=== PATIENT | male | born 1935 | race Caucasian/White ===

== ENCOUNTER 2018-06-29 12:59 | Emergency (ER) | payer OTHER, MEDICARE ==
--- NOTE | 2018-06-29 18:17 | EDM.PDOC ---
ED HPI GENERAL MEDICAL PROBLEM - General Chief Complaint: Syncope Stated Complaint: CHEST VIBRATIONS Time Seen by Provider: 06/29/18 13:00 Source of Information: Reports: Patient, EMS Notes Reviewed, Police History Limitations: Reports: No Limitations, Other (Forgetful, does not know place, time, year, president, season, but does know date) - History of Present Illness INITIAL COMMENTS - FREE TEXT/NARRATIVE: This is an 82yo M brought in by the [employer] department for concerns of syncope. He almost fell multiple times at the department while standing. It was said [place] [employer] [place] he was going or where he was. He was brought to the [employer] [facility] [facility] department at that time and started having syncopal symptoms and was given food and drink. He was then brought to the ER for evaluation. It was discovered during this time that he went missing for 2-3 days from [facility] after his went to the hospital. He has been having similar issues with memory and other concerns but possibly in denial. He cannot recall anything from his car to location, to what he is doing. He does seem pleasant and cooperative. Duration: Constant Associated Symptoms: Reports: Syncope - Related Data Allergies Allergy/AdvReac Type Severity Reaction Status Date / Time No Known Allergies Allergy Verified 06/29/18 14:05 Past Medical History Cardiovascular History: Reports: Bypass, CAD, Pacemaker, Other (See Below) Other Cardiovascular History: Patient is unsure of his medical history. Son states he has a significant cardiac history. 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 Also has pacer noted and felt in left upper chest. Monitor shows paced rhythm Neurological History: Reports: Other (See Below) Other Neuro History: Hx of dementia. Patient went missing from his home about 2 days ago. Family believes he was trying to drive to see his hospitalized in [facility] but got lost. Ended up at the [facility] in [place], [place]. There was a missing persons alert out for him. Psychiatric History: Reports: Addiction, Dementia, Other (See Below) Other Psychiatric History: Hx of alcohol abuse but quit many years ago Endocrine/Metabolic History: Reports: Other (See Below) Other Endocrine/Metabolic History: unsure if hx of diabetes per son - Past Surgical History Cardiovascular Surgical History: Reports: Coronary Artery Bypass ED ROS GENERAL - Review of Systems Review Of Systems: ROS reveals no pertinent complaints other than HPI. - Physical Exam Exam: See Below Exam Limited By: No Limitations General Appearance: Alert, WD/WN, No Apparent Distress Eye Exam: Bilateral Eye: EOMI, PERRL Ears: Normal External Exam Nose: Normal Inspection Throat/Mouth: Normal Inspection, Normal Oropharynx Head Exam: Atraumatic, Normocephalic Neck: Normal Inspection, Supple, Non-Tender Respiratory/Chest: No Respiratory Distress, Lungs Clear, Normal Breath Sounds, No Accessory Muscle Use Cardiovascular: Normal Peripheral Pulses, Regular Rate, Rhythm, No Edema GI/Abdominal: Normal Bowel Sounds, Soft, Non-Tender Neuro Exam (Abbreviated): Alert, Normal Cognition, Normal Gait, Normal Reflexes , No Motor/Sensory Deficits, Memory Loss Remote Events, Memory Loss Recent Events, Other (There is very high concern that this patient has moderate to severe dementia. He cannot recall place, time, season, nor can he recall short term memory or recent longer term memory. When his son arrived he did appear to recognize him. ). No: Oriented Course - Vital Signs Last Recorded V/S: Last Vital Signs Temp 37.1 C 06/29/18 15:30 Pulse 64 06/29/18 15:30 Resp 18 06/29/18 15:30 BP 130/46 L 06/29/18 15:30 Pulse Ox 99 06/29/18 15:30 - Orders/Labs/Meds Orders: Active Orders 24 hr Category Date Time Status Cardiac Monitoring [RC] .As Directed Care 06/29/18 14:10 Active EKG Documentation Completion [RC] ASDIRECTED Care 06/29/18 13:08 Active Chest 1V Frontal [CR] Stat Exams 06/29/18 13:08 Taken Head wo Cont [CT] Stat Exams 06/29/18 14:14 Taken Labs: Laboratory Tests 06/29/18 06/29/18 06/29/18 Range/Units 13:35 13:35 13:35 WBC 6.4 (4.0-11.0) K/uL RBC 4.79 (4.50-6.50) M/uL Hgb 13.3 (13.0-18.0) g/dL Hct 42.4 (40.0-54.0) % MCV 89 (76-96) fL MCH 27.8 (27.0-32.0) pg MCHC 31.4 (31.0-35.0) g/dL RDW 13.7 (11.0-16.0) % Plt Count 151 (150-400) K/uL MPV 11.2 H (6.0-10.0) fL Neut % (Auto) 78.2 H (45.0-70.0) % Lymph % (Auto) 10.1 L (20.0-40.0) % Lagrange % (Auto) 9.2 (3.0-10.0) % Eos % (Auto) 1.9 (1.0-5.0) % Baso % (Auto) 0.6 H (0.0-0.5) % Neut # (Auto) 5.04 (2.00-7.50) K/uL Lymph # (Auto) 0.65 L (1.50-4.00) K/uL Lagrange # (Auto) 0.59 (0.20-0.80) K/uL Eos # (Auto) 0.12 (0.04-0.40) K/uL Baso # (Auto) 0.04 (0.02-0.10) K/uL VBG pH 7.41 (7.31-7.41) Sodium 141 (136-145) mmol/L Potassium 4.4 (3.5-5.1) mmol/L Chloride 102 (98-107) mmol/L Carbon Dioxide 24.7 (21.0-32.0) mmol/L Anion Gap 18.7 H (5.0-15.0) mmol/L BUN 27 H (8-26) mg/dL Creatinine 2.02 H (0.70-1.30) mg/dL Est Cr Clr Drug Dosing TNP Estimated GFR (MDRD) 32 L (>60) MLS/MIN BUN/Creatinine Ratio 13.4 (6-25) Glucose 174 H (74-100) mg/dL Lactic Acid (0.90-1.70) mmol/L Calcium 9.1 (8.5-10.1) mg/dL Total Bilirubin 0.9 (0.0-1.0) mg/dL AST 21 (15-37) U/L ALT 13 (12-78) U/L Alkaline Phosphatase 83 (46-116) U/L Troponin I 0.050 (0.000-0.060) ng/mL B-Natriuretic Peptide 37446 H (0-450) pg/mL Total Protein 8.2 (6.4-8.2) g/dL Albumin 3.9 (3.4-5.0) g/dL Globulin 4.3 H (2.2-4.2) g/dL Albumin/Globulin Ratio 0.9 (0.8-2.0) TSH, Ultra Sensitive 3.144 (0.358-3.740) uIU/mL 06/29/18 Range/Units 13:35 WBC (4.0-11.0) K/uL RBC (4.50-6.50) M/uL Hgb (13.0-18.0) g/dL Hct (40.0-54.0) % MCV (76-96) fL MCH (27.0-32.0) pg MCHC (31.0-35.0) g/dL RDW (11.0-16.0) % Plt Count (150-400) K/uL MPV (6.0-10.0) fL Neut % (Auto) (45.0-70.0) % Lymph % (Auto) (20.0-40.0) % Lagrange % (Auto) (3.0-10.0) % Eos % (Auto) (1.0-5.0) % Baso % (Auto) (0.0-0.5) % Neut # (Auto) (2.00-7.50) K/uL Lymph # (Auto) (1.50-4.00) K/uL Lagrange # (Auto) (0.20-0.80) K/uL Eos # (Auto) (0.04-0.40) K/uL Baso # (Auto) (0.02-0.10) K/uL VBG pH (7.31-7.41) Sodium (136-145) mmol/L Potassium (3.5-5.1) mmol/L Chloride (98-107) mmol/L Carbon Dioxide (21.0-32.0) mmol/L Anion Gap (5.0-15.0) mmol/L BUN (8-26) mg/dL Creatinine (0.70-1.30) mg/dL Est Cr Clr Drug Dosing Estimated GFR (MDRD) (>60) MLS/MIN BUN/Creatinine Ratio (6-25) Glucose (74-100) mg/dL Lactic Acid 2.50 H (0.90-1.70) mmol/L Calcium (8.5-10.1) mg/dL Total Bilirubin (0.0-1.0) mg/dL AST (15-37) U/L ALT (12-78) U/L Alkaline Phosphatase (46-116) U/L Troponin I (0.000-0.060) ng/mL B-Natriuretic Peptide (0-450) pg/mL Total Protein (6.4-8.2) g/dL Albumin (3.4-5.0) g/dL Globulin (2.2-4.2) g/dL Albumin/Globulin Ratio (0.8-2.0) TSH, Ultra Sensitive (0.358-3.740) uIU/mL Departure - Departure Time of Disposition: 16:30 Disposition: Home, Self-Care 01 Condition: Undetermined Clinical Impression: Hypoglycemia Dementia Qualifiers: Dementia type: unspecified type Dementia behavioral disturbance: without behavioral disturbance Qualified Code(s): F03.90 - Unspecified dementia without behavioral disturbance - Discharge Information Instructions: Hypoglycemia Referrals: PCP,None [Primary Care Provider] - Forms: ED Department Discharge Care Plan Goals: Return to primary health care provider when returning home. Follow up with elevated lab (BNP and creatinine) - Problem List & Annotations (1) Dementia SNOMED Code(s): 62301396 Code(s): F03.90 - UNSPECIFIED DEMENTIA WITHOUT BEHAVIORAL DISTURBANCE Status: Acute Qualifiers: Dementia type: unspecified type Dementia behavioral disturbance: without behavioral disturbance Qualified Code(s): F03.90 - Unspecified dementia without behavioral disturbance (2) Hypoglycemia SNOMED Code(s): 987559927 Code(s): E16.2 - HYPOGLYCEMIA, UNSPECIFIED Status: Acute - Problem List Review Problem List Initiated/Reviewed/Updated: Yes - My Orders Last 24 Hours: My Active Orders 06/29/18 13:08 EKG Documentation Completion [RC] ASDIRECTED Chest 1V Frontal [CR] Stat 06/29/18 14:10 Cardiac Monitoring [RC] .As Directed 06/29/18 14:14 Head wo Cont [CT] Stat - Assessment/Plan Last 24 Hours: My Active Orders 06/29/18 13:08 EKG Documentation Completion [RC] ASDIRECTED Chest 1V Frontal [CR] Stat 06/29/18 14:10 Cardiac Monitoring [RC] .As Directed 06/29/18 14:14 Head wo Cont [CT] Stat Plan: Patient likely was having issues with hypoglycemia but after eating at the [employer] department and then arriving in the ER his sugars were about 160. There have not been reports of prior syncope. Counseled on labs and f/u with PCP for further care of BNP elevation and Creatinine as well as Dementia f/u and care. Patient should have a full assessment of his Dementia for how severe it may be. He would likely benefit in a Care center to avoid further incidents of getting lost. Patient discharged into the care of his Son and Daughter in law.
--- NOTE | 2018-06-30 09:01 | CT ---
DATE OF SERVICE: 06/29/18 CLINICAL DATA: Syncope. UNENHANCED BRAIN CT: Multislice acquisition through the brain without IV contrast was performed. No priors. There is diffuse cerebral atrophy. There are periventricular lucencies bilaterally consistent with small-vessel ischemic change. There are lucencies in the basal ganglia bilaterally and in the right caudate head consistent with old lacunar infarcts. No masses or mass effect. No intracranial hemorrhage. No evidence of acute or subacute infarct. No osseous abnormalities. IMPRESSION: No acute intracranial abnormalities. [id number] [facility]
--- NOTE | 2018-06-30 09:13 | CR ---
DATE OF SERVICE: 06/29/18 CLINICAL DATA: Syncope. AP CHEST: No priors. The patient is status post median sternotomy. There is a cardiac pacer overlying the left chest with a distal pacer wire in the region of the right ventricle. The heart is enlarged. The aorta is calcified and ectatic. There is subtle increased density in the left lung base, most likely representing basilar atelectasis or infiltrate. The lungs otherwise clear. No pneumothorax. No pleural effusions. No other significant findings. [id number] [facility]
== END 2018-06-29 15:30 | disposition home or self-care (01) ==
LOC: LB.ED 12:59
DX: E16.2 Hypoglycemia, unspecified (principal); F03.90 Unspecified dementia, unspecified severity, without behavioral disturbance, psychotic disturbance, mood disturbance, and anxiety; I25.10 Atherosclerotic heart disease of native coronary artery without angina pectoris; Z95.1 Presence of aortocoronary bypass graft
CPT/HCPCS: 36415; 70450; 71045; 80053; 82800; 83605; 83880; 84443; 84484; 85025; 93005; 99284; A0425; A0429